=== PATIENT | female | born 1945 | race Caucasian/White ===

== ENCOUNTER 2017-05-15 09:16 | Day surgery (SDC) | payer OTHER ==
[2017-05-10 12:20] VITALS: BMI 26.7
[2017-05-15 09:50] VITALS: TEMP 98.2
[2017-05-15] MEDS ORDERED: PROPOFOL 20 ML ONE (09:50)
[2017-05-15 11:46] VITALS: BP 118/61; PULSE 63
--- NOTE | 2017-05-16 16:15 | PATH ---
Surgical Pathology Report Patient Name: DUSTIN QUINTEROS [facility]. Rec. #: [id number] /Age/Gender: 1945 (Age: 72) / F Account: [id number] Location: [facility] [place]-ENDOSCOPY Taken: 05/15/2017 Received: 05/15/2017 Reported: 05/16/2017 Physicians: Jeannie Bush M.D. Specimen(s) Received A: BX ANTRUM B: BX GE JUNCTION Clinical History GERD Gastritis, rule out Acosta's esophagus Final Diagnosis A. ANTRUM, BIOPSY: MODERATE CHRONIC GASTRITIS WITH INTESTINAL METAPLASIA. IMMUNOSTAIN IS NEGATIVE FOR H. PYLORI ORGANISMS. B. GE JUNCTION, BIOPSY: COLUMNAR (GASTRIC CARDIAC-TYPE) MUCOSA SHOWING MODERATE CHRONIC INFLAMMATION AND INTESTINAL METAPLASIA, COMPATIBLE WITH ACOSTA'S ESOPHAGUS IN THE APPROPRIATE CLINICAL/ENDOSCOPIC SETTING. NEGATIVE FOR DYSPLASIA. Electronically Signed Silva Rivera M.D. Gross Description A. Received in formalin, labeled "antrum" are 2 stroud, irregular portions of soft tissue measuring 0.1 and 0.4 cm. in greatest dimension. The specimens are submitted in toto in one cassette. B. Received in formalin, labeled "GE junction" are 5 stroud, irregular portions of soft tissue ranging from 0.2-0.4 cm. in greatest dimension. The specimens are submitted in toto in one cassette. 05/15/201705/15/2017
== END 2017-05-15 11:50 | disposition home or self-care (01) ==
LOC: FASU-ENDO 09:16
PROVIDERS: ATTEND Internal Medicine Gastroenterology
PROC: 0DB48ZX Excision of Esophagogastric Junction, Via Natural or Artificial Opening Endoscopic, Diagnostic (ICD-10-PCS; principal; 2017-05-15 10:55)
PROC: 0DB68ZX Excision of Stomach, Via Natural or Artificial Opening Endoscopic, Diagnostic (ICD-10-PCS; 2017-05-15 10:55)
DX: K22.70 Barrett's esophagus without dysplasia (principal); K29.70 Gastritis, unspecified, without bleeding
CPT/HCPCS: 88305-TC; 88342-TC